=== PATIENT | female | born 1965 | race Caucasian/White ===

== ENCOUNTER 2019-01-18 09:28 | Emergency (ER) | payer OTHER ==
--- NOTE | 2019-01-18 10:30 | EDM.PDOC ---
ED HPI GENERAL MEDICAL PROBLEM - General Chief Complaint: Upper Extremity Injury/Pain Stated Complaint: INJURED LEFT WRIST Time Seen by Provider: 01/18/19 10:29 Source of Information: Reports: Patient History Limitations: Reports: No Limitations - History of Present Illness INITIAL COMMENTS - FREE TEXT/NARRATIVE: HISTORY AND PHYSICAL: History of present illness: Patient's a 53-year-old female here with complaint of right wrist injury. She states that last night she was lifting a large drill bit up onto a plane when she felt immediate pain in her wrist. She reports pain with certain movements and cannot lay it flat on the table. She is taking motrin with some relief. Review of systems: As per history of present illness and below otherwise all systems reviewed and negative. Past medical history: As per history of present illness and as reviewed below otherwise noncontributory. Surgical history: As per history of present illness and as reviewed below otherwise noncontributory. Social history: No reported history of drug or alcohol abuse. Family history: As per history of present illness and as reviewed below otherwise noncontributory. Physical exam: General: Patient sitting comfortably in no acute distress and nontoxic appearing HEENT: Atraumatic, normocephalic, pupils reactive, negative for conjunctival pallor or scleral icterus, mucous membranes moist, throat clear, neck supple, nontender, trachea midline. No meningeal signs. Lungs: Clear to auscultation, breath sounds equal bilaterally, chest nontender. Heart: S1S2, regular, negative for clicks, rubs, or overt murmur. Abdomen: Soft, nondistended, nontender. Negative for masses or hepatosplenomegaly. Negative for costovertebral tenderness. No rigidity, rebound , guarding. Pelvis: Stable nontender. Genitourinary: Deferred. Rectal: Deferred. Extremities: There is no obvious swelling or deformity of the right wrist. Pain to palpation along the distal radius. No anatomical snuff box tenderness. Atraumatic, negative for cords or calf pain. Neurovascular unremarkable. Neuro: Awake, alert, oriented. Cranial nerves II through XII unremarkable. Cerebellum unremarkable. Motor and sensory unremarkable throughout. Exam nonfocal. Notes: Diagnostics: x-ray right wrist Therapeutics: Wrist splint Prescriptions: None Impression: Right wrist sprain Plan: 1. Wear splint, ice, and motrin as instructed 2. Follow up with primary care provider or orthopedics 3. Return to ED as needed as discussed Definitive disposition and diagnosis as appropriate pending reevaluation and review of above. Right Wrist Pain Score (Numeric/FACES): 6 - Related Data Allergies Allergy/AdvReac Type Severity Reaction Status Date / Time Sulfa (Sulfonamide Allergy Hives Verified 01/18/19 10:18 Antibiotics) Home Meds: Home Meds . [No Known Home Meds] 01/18/19 [History] Past Medical History - Past Health History Medical/Surgical History: Denies Medical/Surgical History - Infectious Disease History Infectious Disease History: Reports: None Social & Family History - Family History Family Medical History: Noncontributory - Tobacco Use Smoking Status *Q: Current Every Day Smoker Years of Tobacco use: 35 Packs/Tins Daily: 1 - Caffeine Use Caffeine Use: Reports: Coffee - Recreational Drug Use Recreational Drug Use: No Review of Systems - Review of Systems Review Of Systems: ROS reveals no pertinent complaints other than HPI. ED EXAM, GENERAL - Physical Exam Exam: See Below (see dictation) Course - Vital Signs Last Recorded V/S: Last Vital Signs Temp 97.4 F 01/18/19 10:18 Pulse 62 01/18/19 10:18 Resp 15 01/18/19 10:18 BP 104/65 01/18/19 10:18 Pulse Ox 97 01/18/19 10:18 Departure - Departure Time of Disposition: 11:06 Disposition: Home, Self-Care 01 Condition: Good Clinical Impression: Right wrist injury - Discharge Information Referrals: PCP,Not In Area [Primary Care Provider] - Forms: ED Department Discharge Additional Instructions: The following information is given to patients seen in the emergency department who are being discharged to home. This information is to outline your options for follow-up care. We provide all patients seen in our emergency department with a follow-up referral. The need for follow-up, as well as the timing and circumstances, are variable depending upon the specifics of your emergency department visit. If you don't have a primary care physician on staff, we will provide you with a referral. We always advise you to contact your personal physician following an emergency department visit to inform them of the circumstance of the visit and for follow-up with them and/or the need for any referrals to a consulting specialist. The emergency department will also refer you to a specialist when appropriate. This referral assures that you have the opportunity for follow-up care with a specialist. All of these measure are taken in an effort to provide you with optimal care, which includes your follow-up. Under all circumstances we always encourage you to contact your private physician who remains a resource for coordinating your care. When calling for follow-up care, please make the office aware that this follow-up is from your recent emergency room visit. If for any reason you are refused follow-up, please contact the [facility] Emergency Department at and asked to speak to the emergency department charge nurse. [facility] [address] [place] [id number] [address] [facility] [address] [place] [address], [address] [place] [address] 1. Wear splint, ice, and motrin as instructed 2. Follow up with primary care provider or orthopedics 3. Return to ED as needed as discussed
--- NOTE | 2019-01-18 10:58 | CR ---
Indication: Drill fell on right wrist Technique: Three views of the right wrist routine. Comparison: None Findings: Degenerative changes of the right wrist are identified. No acute fracture or subluxation is identified. Impression: No acute fracture. Dictated by Yessenia Armando MD @ Jan 18 2019 10:57AM Signed by Dr. Yessenia Armando @ Jan 18 2019 10:57AM
== END 2019-01-18 11:38 | disposition home or self-care (01) ==
LOC: MW.ED 09:28
DX: S63.501A Unspecified sprain of right wrist, initial encounter (principal); F17.210 Nicotine dependence, cigarettes, uncomplicated; Z88.2 Allergy status to sulfonamides; X50.0XXA Overexertion from strenuous movement or load, initial encounter
CPT/HCPCS: 73110-26-RT; 73110-RT; 99283-25

== ENCOUNTER 2020-04-15 12:08 | Emergency (ER) | payer OTHER, BC ==
--- NOTE | 2020-04-15 12:26 | EDM.PDOC ---
ED HPI GENERAL MEDICAL PROBLEM - General Chief Complaint: Head Injury Stated Complaint: FELL Time Seen by Provider: 04/15/20 12:25 Source of Information: Reports: Patient History Limitations: Reports: No Limitations - History of Present Illness INITIAL COMMENTS - FREE TEXT/NARRATIVE: HISTORY AND PHYSICAL: History of present illness: Patient is a 55-year-old female presents to the ED for head injury. Patient works for [employer] and states that she missed a step and fell approximately 2 feet off of a loading dock hitting her head and scraping her right leg. She does believe that she lost consciousness. She states that she is having some neck pain now and feeling dizzy. She denies any nausea, vomiting, visual changes, chest pain, shortness of breath. She denies significant past medical history and is not on any anticoagulants. Review of systems: As per history of present illness and below otherwise all systems reviewed and negative. Past medical history: As per history of present illness and as reviewed below otherwise noncontributory. Surgical history: As per history of present illness and as reviewed below otherwise noncontributory. Social history: No reported history of drug or alcohol abuse. Family history: As per history of present illness and as reviewed below otherwise noncontributory. Physical exam: General: Patient sitting comfortably in no acute distress and nontoxic appearing HEENT: abrasion to the left brow. normocephalic, pupils reactive, negative for conjunctival pallor or scleral icterus, mucous membranes moist, throat clear, neck supple, nontender, trachea midline. No meningeal signs. Lungs: Clear to auscultation, breath sounds equal bilaterally, chest nontender. Heart: S1S2, regular, negative for clicks, rubs, or overt murmur. Abdomen: Soft, nondistended, nontender. Negative for masses or hepatosplenomegaly. Negative for costovertebral tenderness. No rigidity, rebound , guarding. Pelvis: Stable nontender. Genitourinary: Deferred. Rectal: Deferred. Extremities: Abrasion to the right anterior tian. negative for cords or calf pain. Neurovascular unremarkable. Neuro: Awake, alert, oriented. Cranial nerves II through XII unremarkable. Cerebellum unremarkable. Motor and sensory unremarkable throughout. Exam nonfocal. Notes: Diagnostics: CT head w/o, CT neck w/o Therapeutics: none Prescriptions: none Impression: Head injury, fall, neck strain Plan: Alternate tylenol and motrin as needed Follow up with primary care provider Return to ED as needed as discussed Definitive disposition and diagnosis as appropriate pending reevaluation and review of above. Neck Pain Score (Numeric/FACES): 3 - Related Data Allergies Allergy/AdvReac Type Severity Reaction Status Date / Time Sulfa (Sulfonamide Allergy Hives Verified 04/15/20 12:24 Antibiotics) Home Meds: Home Meds . [No Known Home Meds] 01/18/19 [History] Past Medical History - Past Health History Medical/Surgical History: Denies Medical/Surgical History - Infectious Disease History Infectious Disease History: Reports: None Social & Family History - Family History Family Medical History: Noncontributory - Caffeine Use Caffeine Use: Reports: Coffee ED ROS GENERAL - Review of Systems Review Of Systems: Comprehensive ROS is negative, except as noted in HPI. ED EXAM, HEAD INJURY - Physical Exam Exam: See Below (see dictation) Course - Vital Signs Last Recorded V/S: Last Vital Signs Temp 97.3 F 04/15/20 12:21 Pulse 65 04/15/20 12:21 Resp 16 04/15/20 12:21 BP 135/77 04/15/20 12:21 Pulse Ox 97 04/15/20 12:21 Departure - Departure Time of Disposition: 13:27 Disposition: Home, Self-Care 01 Condition: Good Clinical Impression: Head injury, Fall, Cervical strain - Discharge Information Referrals: PCP,None [Primary Care Provider] - Forms: ED Department Discharge Additional Instructions: The following information is given to patients seen in the emergency department who are being discharged to home. This information is to outline your options for follow-up care. We provide all patients seen in our emergency department with a follow-up referral. The need for follow-up, as well as the timing and circumstances, are variable depending upon the specifics of your emergency department visit. If you don't have a primary care physician on staff, we will provide you with a referral. We always advise you to contact your personal physician following an emergency department visit to inform them of the circumstance of the visit and for follow-up with them and/or the need for any referrals to a consulting specialist. The emergency department will also refer you to a specialist when appropriate. This referral assures that you have the opportunity for follow-up care with a specialist. All of these measure are taken in an effort to provide you with optimal care, which includes your follow-up. Under all circumstances we always encourage you to contact your private physician who remains a resource for coordinating your care. When calling for follow-up care, please make the office aware that this follow-up is from your recent emergency room visit. If for any reason you are refused follow-up, please contact the [facility] Emergency Department at and asked to speak to the emergency department charge nurse. [facility] [address] [place] [id number] [address] Alternate tylenol and motrin as needed Follow up with primary care provider Return to ED as needed as discussed Sepsis Event Note - Evaluation Sepsis Screening Result: No Definite Risk - Focused Exam Vital Signs: Vital Signs Temp Pulse Resp BP Pulse Ox 04/15/20 12:21 97.3 F 65 16 135/77 97 Date Exam was Performed: 04/15/20 Time Exam was Performed: 13:23
--- NOTE | 2020-04-15 13:11 | CT ---
Head CT Technique: Multiple axial sections through the brain were obtained. Intravenous contrast was not utilized. Beam hardening artifact obscures some details within the posterior fossa. Ventricles along with basal cisterns and sulci over the convexities are within normal limits for the patient's age. No abnormal parenchymal densities are seen. No evidence of intracranial hemorrhage. No midline shift or mass effect is seen. Bone window settings were reviewed which shows slight mucosal thickening within the right maxillary sinus as well as mucosal thickening scattered within the ethmoid and left frontal sinuses and within the sphenoid sinus. These findings are most likely chronic. Mastoid sinuses show nothing acute. No acute calvarial abnormality is appreciated. Impression: 1. Findings as noted above. 2. Nothing acute is appreciated. Diagnostic code #2 This report was dictated in MDT
--- NOTE | 2020-04-15 13:15 | CT ---
CT cervical spine Technique: Multiple axial sections were obtained from above C1 inferiorly to the bottom of T3. Reconstructed sagittal and coronal images were reviewed. Findings: Severe disc space narrowing noted at C5-C6 with mild anterior and posterior osteophytes. Other disc spaces are fairly well preserved. Vertebral body heights are maintained. Mild degenerative change is noted between the dens and anterior arch of C1. Degenerative change is scattered throughout the apophyseal joints. Vertebral bodies and posterior arches are intact. No fracture is appreciated. Partially visualized parenchymal density is noted within the left upper chest. No bony central or bony neural foraminal stenosis is seen. Impression: 1. Degenerative change as noted above. 2. Partially visualized opacity within the left upper chest, difficult to exclude area of pneumonia, pulmonary contusion or mass. Consider noncontrast chest CT to further evaluate. 3. No acute fracture or abnormal subluxation is seen within the cervical spine. Diagnostic code #9 This report was dictated in MDT
== END 2020-04-15 13:49 | disposition home or self-care (01) ==
LOC: MW.ED 12:08
DX: S09.90XA Unspecified injury of head, initial encounter (principal); S16.1XXA Strain of muscle, fascia and tendon at neck level, initial encounter; S80.811A Abrasion, right lower leg, initial encounter; S00.212A Abrasion of left eyelid and periocular area, initial encounter; Z88.2 Allergy status to sulfonamides; W10.8XXA Fall (on) (from) other stairs and steps, initial encounter
CPT/HCPCS: 70450; 70450-26; 72125; 72125-26; 99283; 99283-25

== ENCOUNTER 2021-04-21 16:41 | Inpatient (IN) | payer BC, OTHER ==
[2021-04-21 18:33] LABS: CORONAVIRUS COVID-19 NAA NEGATIVE (NEGATIVE)
[2021-04-21 19:06] LABS: CARBON DIOXIDE,CO2 25.8 mmol/L (21.0-32.0)
[2021-04-21 19:10] LABS: POTASSIUM,K 3.4 mmol/L (3.5-5.1)
[2021-04-21 19:43] LABS: INFLUENZA A NAA NEGATIVE (NEGATIVE); INFLUENZA B NAA NEGATIVE (NEGATIVE)
--- NOTE | 2021-04-21 19:51 | CT ---
For Patients: As a result of the Century Cures Act, medical imaging exams and procedure reports are released immediately into your electronic medical record. You may view this report before your referring provider. If you have questions, please contact your health care provider. INDICATION: Headache, neck pain TECHNIQUE: CT head without contrast. COMPARISON: April 15, 2020 FINDINGS: CSF spaces: Within normal limits for age. There is cavum septum pellucidum et vergae, a normal variant. Brain parenchyma: The lorenzana-white differentiation is normal. No sign of mass, hemorrhage, or midline shift. Skull base and calvarium: The visualized paranasal sinuses and mastoid air cells demonstrate no acute or significant findings. The visualized orbits are grossly unremarkable. No skull fractures. IMPRESSION: No acute abnormality. Please note that all CT scans at this facility use dose modulation, iterative reconstruction, and/or weight-based dosing when appropriate to reduce radiation dose to as low as reasonably achievable. Dictated by Rebekah Franklin MD @ 04/21/2021 7:49:[address] Rebekah Franklin @ Apr 21 2021 7:49PM
--- NOTE | 2021-04-21 20:03 | CT ---
For Patients: As a result of the Century Cures Act, medical imaging exams and procedure reports are released immediately into your electronic medical record. You may view this report before your referring provider. If you have questions, please contact your health care provider. INDICATION: headache/ neck pain TECHNIQUE: CT cervical spine without contrast. COMPARISON: 04/15/2020 FINDINGS: Vertebral alignment: Alignment is normal. Vertebrae: There are no fractures or suspicious bony lesions. Discs and facet joints: There are moderate multilevel degenerative disc and facet changes. Extraspinal findings: There is a 1.3 cm hypodense lesion in the right thyroid lobe. IMPRESSION: 1. No sign of acute injury. 2. Multilevel degenerative spondylosis. 3. Hypodense lesion in the right thyroid lobe. Recommend thyroid ultrasound for further characterization. Please note that all CT scans at this facility use dose modulation, iterative reconstruction, and/or weight-based dosing when appropriate to reduce radiation dose to as low as reasonably achievable. Dictated by Rebekah Franklin MD @ 04/21/2021 8:01:[address] Rebekah Franklin @ Apr 21 2021 8:01PM
--- NOTE | 2021-04-21 20:03 | CR ---
For Patients: As a result of the Cures Act, medical imaging exams and procedure reports are released immediately into your electronic medical record. You may view this report before your referring provider. If you have questions, please contact your health care provider. INDICATION: Fever, headache, neck pain TECHNIQUE: PA and lateral views of the chest COMPARISON: None FINDINGS: The lung apices are incompletely included on PA view. There is no sizable pneumothorax. The visualized lungs are clear. There is no pleural effusion. The cardiomediastinal silhouette is normal. The osseous structures are unremarkable. IMPRESSION: No acute abnormality. Dictated by Eboni Craig MD @ 04/21/2021 8:02:[address] Eboni Craig @ Apr 21 2021 8:02PM
--- NOTE | 2021-04-21 20:46 | PCM.SN.2 ---
- Free Text/Narrative Note: LUMBAR PUNCTURE NOTE Request by Dr Desouza (hospitalist) to do lumbar puncture for R/O meningitis PAR risks including spinal YOU discussed, no questions consent signed LLD sterile prep draped local L3-4 21G spinal needle inserted with bevel parallel to ligament flavum pos csf, no blood or paresthesias OP 23 cm water 4 vials csf collected sterally, abt 1 cc per vial fluid appeared clear CP 13 spinal needle removed, dressing applied no known complications, pt tolerated procedure well follow up Dr Desouza
--- NOTE | 2021-04-21 20:49 | PCM.HP.2 ---
H&P History of Present Illness - General Date of Service: 04/21/21 Admit Problem/Dx: Admission Diagnosis/Problem Admission Diagnosis/Problem Fever - History of Present Illness Initial Comments - Free Text/Narative: 56 yo female who was directly admitted from Dr. [facility]an [facility] with complaint of fevers, myalgias for past week. Patient reports started with a headache and then a day later she developed fevers and chills. She does report sore neck and back as well as aches everywhere. Patient denies any shortness of breath, cough, or diarrhea. Dr. Munoz was conserned about possible aseptic meningitis so requested admission. Headache Pain Score (Numeric/FACES): 5 - Related Data Allergies/Adverse Reactions: Allergies Allergy/AdvReac Type Severity Reaction Status Date / Time Sulfa (Sulfonamide Allergy Hives Verified 04/21/21 19:07 Antibiotics) Home Medications: Home Meds . [No Known Home Meds] 01/18/19 [History] Past Medical History - Past Health History Medical/Surgical History: Denies Medical/Surgical History - Infectious Disease History Infectious Disease History: Reports: None Social & Family History - Family History Family Medical History: No Pertinent Family History - Tobacco Use Tobacco Use Status *Q: Current Every Day Tobacco User Years of Tobacco use: 30 Packs/Tins Daily: 1 Used Tobacco, but Quit: No Second Hand Smoke Exposure: Yes - Caffeine Use Caffeine Use: Reports: Coffee, Tea - Alcohol Use Number of Drinks Per Day: 3 Date of Last Drink: 04/15/21 - Recreational Drug Use Recreational Drug Use: No H&P Review of Systems - Review of Systems: Review Of Systems: Comprehensive ROS is negative, except as noted in HPI. Exam - Exam Exam: See Below - Vital Signs Vital Signs: Last Vital Signs Temp 35.7 C L 04/21/21 18:21 Pulse 73 04/21/21 18:21 Resp 18 04/21/21 18:21 BP 117/77 04/21/21 18:21 Pulse Ox 99 04/21/21 18:21 Weight: 67.2 kg - Exam General: Alert, Oriented HEENT: Conjunctiva Clear, EOMI, Mucosa Moist & [place] Neck: Supple, Full Range of Motion Lungs: Clear to Auscultation, Normal Respiratory Effort Cardiovascular: Regular Rate, Regular Rhythm GI/Abdominal Exam: Normal Bowel Sounds, Soft, Non-Tender Extremities: Normal Inspection, Non-Tender, No Pedal Edema Skin: Warm, Dry, Intact Neurological: Cranial Nerves Intact, Strength Equal Bilateral, Normal Gait, Normal Speech, Sensation Intact. No: Focal Deficit - Patient Data Lab Results Last 24 hrs: Laboratory Results - last 24 hr 04/21/21 04/21/21 04/21/21 Range/Units 16:55 18:24 18:24 WBC 6.39 (4.0-11.0) K/uL RBC 4.59 (4.30-5.90) M/uL Hgb 15.5 (12.0-16.0) g/dL Hct 41.8 (36.0-46.0) % MCV 91.1 (80.0-98.0) fL MCH 33.8 H (27.0-32.0) pg MCHC 37.1 H (31.0-37.0) g/dL RDW Std Deviation 41.2 (28.0-62.0) fl RDW Coeff of Delia 12 (11.0-15.0) % Plt Count 214 (150-400) K/uL MPV 8.80 (7.40-12.00) fL Neut % (Auto) 54.7 (48.0-80.0) % Lymph % (Auto) 30.7 (16.0-40.0) % [place] % (Auto) 11.3 (0.0-15.0) % Eos % (Auto) 2.5 (0.0-7.0) % Baso % (Auto) 0.8 (0.0-1.5) % Neut # (Auto) 3.5 (1.4-5.7) K/uL Lymph # (Auto) 2.0 (0.6-2.4) K/uL [place] # (Auto) 0.7 (0.0-0.8) K/uL Eos # (Auto) 0.2 (0.0-0.7) K/uL Baso # (Auto) 0.1 (0.0-0.1) K/uL Nucleated RBC % 0.0 /100WBC Nucleated RBCs # 0 K/uL INR 0.98 Sodium (136-145) mmol/L Potassium (3.5-5.1) mmol/L Chloride (98-107) mmol/L Carbon Dioxide (21.0-32.0) mmol/L BUN (7.0-18.0) mg/dL Creatinine (0.6-1.0) mg/dL Est Cr Clr Drug Dosing mL/min Estimated GFR (MDRD) ml/min Glucose (74-106) mg/dL Calcium (8.5-10.1) mg/dL Total Bilirubin (0.2-1.0) mg/dL AST (15-37) IU/L ALT (14-63) IU/L Alkaline Phosphatase (46-116) U/L Total Protein (6.4-8.2) g/dL Albumin (3.4-5.0) g/dL Globulin (2.6-4.0) g/dL Albumin/Globulin Ratio (0.9-1.6) Urine Color Urine Appearance Urine pH (5.0-8.0) Ur Specific [place] (1.001-1.035) Urine Protein (NEGATIVE) mg/dL Urine Glucose (UA) (NEGATIVE) mg/dL Urine Ketones (NEGATIVE) mg/dL Urine Occult Blood (NEGATIVE) Urine Nitrite (NEGATIVE) Urine Bilirubin (NEGATIVE) Urine Urobilinogen (<2.0) EU/dL Ur Leukocyte Esterase (NEGATIVE) Urine RBC (0-2/HPF) Urine WBC (0-5/HPF) Ur Epithelial Cells (NONE-FEW) Urine Bacteria (NEGATIVE) Influenza Type A RNA NEGATIVE (NEGATIVE) Influenza Type B RNA NEGATIVE (NEGATIVE) SARS-CoV-2 RNA (AJITH) NEGATIVE (NEGATIVE) 04/21/21 04/21/21 Range/Units 18:24 18:37 WBC (4.0-11.0) K/uL RBC (4.30-5.90) M/uL Hgb (12.0-16.0) g/dL Hct (36.0-46.0) % MCV (80.0-98.0) fL MCH (27.0-32.0) pg MCHC (31.0-37.0) g/dL RDW Std Deviation (28.0-62.0) fl RDW Coeff of Delia (11.0-15.0) % Plt Count (150-400) K/uL MPV (7.40-12.00) fL Neut % (Auto) (48.0-80.0) % Lymph % (Auto) (16.0-40.0) % [place] % (Auto) (0.0-15.0) % Eos % (Auto) (0.0-7.0) % Baso % (Auto) (0.0-1.5) % Neut # (Auto) (1.4-5.7) K/uL Lymph # (Auto) (0.6-2.4) K/uL [place] # (Auto) (0.0-0.8) K/uL Eos # (Auto) (0.0-0.7) K/uL Baso # (Auto) (0.0-0.1) K/uL Nucleated RBC % /100WBC Nucleated RBCs # K/uL INR Sodium 131 L (136-145) mmol/L Potassium 3.4 L (3.5-5.1) mmol/L Chloride 95 L (98-107) mmol/L Carbon Dioxide 25.8 (21.0-32.0) mmol/L BUN 11 (7.0-18.0) mg/dL Creatinine 1.0 (0.6-1.0) mg/dL Est Cr Clr Drug Dosing 55.85 mL/min Estimated GFR (MDRD) 57.1 ml/min Glucose 97 (74-106) mg/dL Calcium 8.5 (8.5-10.1) mg/dL Total Bilirubin 0.5 (0.2-1.0) mg/dL AST 14 L (15-37) IU/L ALT 21 (14-63) IU/L Alkaline Phosphatase 64 (46-116) U/L Total Protein 6.5 (6.4-8.2) g/dL Albumin 3.2 L (3.4-5.0) g/dL Globulin 3.3 (2.6-4.0) g/dL Albumin/Globulin Ratio 1.0 (0.9-1.6) Urine Color YELLOW Urine Appearance CLEAR Urine pH 6.0 (5.0-8.0) Ur Specific [place] <= 1.005 (1.001-1.035) Urine Protein NEGATIVE (NEGATIVE) mg/dL Urine Glucose (UA) NEGATIVE (NEGATIVE) mg/dL Urine Ketones NEGATIVE (NEGATIVE) mg/dL Urine Occult Blood NEGATIVE (NEGATIVE) Urine Nitrite NEGATIVE (NEGATIVE) Urine Bilirubin NEGATIVE (NEGATIVE) Urine Urobilinogen 0.2 (<2.0) EU/dL Ur Leukocyte Esterase TRACE H (NEGATIVE) Urine RBC 0-1 (0-2/HPF) Urine WBC 0-2 (0-5/HPF) Ur Epithelial Cells RARE (NONE-FEW) Urine Bacteria 1+ H (NEGATIVE) Influenza Type A RNA (NEGATIVE) Influenza Type B RNA (NEGATIVE) SARS-CoV-2 RNA (AJITH) (NEGATIVE) Result Diagrams: 04/21/21 18:24 04/21/21 18:24 Sepsis Event Note - Evaluation Sepsis Screening Result: No Definite Risk - Focused Exam Vital Signs: Vital Signs Temp Pulse Resp BP Pulse Ox 04/21/21 18:21 35.7 C L 73 18 117/77 99 Problem List Initiated/Reviewed/Updated: Yes Orders Last 24hrs: Active Orders 24 hr Category Date Time Status Patient Status [ADT] Routine ADT 04/21/21 18:40 Active Antiembolic Devices [RC] PER UNIT ROUTINE Care 04/21/21 18:42 Active Influenza Vaccine Charge [RC] .DISCHARGE Care 04/21/21 18:17 Active Oxygen Therapy [RC] PRN Care 04/21/21 18:40 Active Up ad Yvonne [RC] ASDIRECTED Care 04/21/21 18:40 Active VTE/DVT Education [RC] PER UNIT ROUTINE Care 04/21/21 18:40 Active Vital Signs [RC] Q4H Care 04/21/21 18:40 Active CELL COUNT,CSF [BF] Routine Lab 04/21/21 18:56 Ordered CSF LACTIC Routine Lab 04/21/21 18:56 Ordered CSF PROTEIN Routine Lab 04/21/21 18:56 Ordered CULTURE BLOOD [BC] Stat Lab 04/21/21 19:39 Received CULTURE BLOOD [BC] Stat Lab 04/21/21 19:45 Received CULTURE CSF + SMEAR [RM] Routine Lab 04/21/21 18:56 Ordered CULTURE URINE [MREF] Routine Lab 04/21/21 18:37 Received GLUCOSE,CSF [BF] Routine Lab 04/21/21 18:56 Ordered [place] VIRUS ANTIBODY, CSF Routine Lab 04/21/21 18:56 Ordered FLU Vacc [id number] 36MOS UP/PF [Afluria Quad 2020-21 ( Med 04/22/21 09:00 Once 3YR UP)] 60 mcg IM .ONCE ONE Blood Culture x2 Reflex Set [OM.PC] Stat Oth 04/21/21 18:59 Ordered Isolation [COMM] Routine Oth 04/21/21 18:37 Active Sequential Compression Device [OM.PC] Per Unit Routine Oth 04/21/21 18:41 Ordered Resuscitation Status Routine Resus Stat 04/21/21 18:40 Ordered Medication Orders Influenza Virus Vaccine (Flu Vacc [id number] 36mos Up/Pf 60 Mcg/0.5 Ml Syringe) 60 mcg IM .ONCE ONE Stop: 04/22/21 09:01 Assessment/Plan Comment:: 56 yo female admitted for subjective fevers, chills, with concern of aseptic meningitis. We will get routine labs, CXR, UA and LP. My concern for bacterial meningitis is low so will hold on antibiotic therapy for now.
[2021-04-21] MEDS ORDERED: Sodium Chloride 0.9% with KCl 1,000 ML IV SCH (21:00)
--- NOTE | 2021-04-21 22:53 | PCM.SN.2 ---
- Free Text/Narrative Note: CSF analysis shows likely viral meningitis, Have sent for [place] and HSV, no history of vaginal or oral lesions. Spoke with charge nurse regarding the IV fluid and antibiotic orders. Will give antibiotics for now while awaiting culture results.
[2021-04-21] MEDS ORDERED: Acetaminophen 325 MG Tab PO PRN (23:15)
[2021-04-21] MEDS ORDERED: Acetaminophen 325 MG Tab ONE (23:20)
[2021-04-21] MEDS: Dexamethasone 10 MG/ML SDV IVPUSH SCH (23:36)
[2021-04-21] MEDS: cefTRIAXone 2 GM/50 ML BAG IV SCH (23:37)
[2021-04-22] MEDS: Ampicillin 2 GM in Sodium Chloride 0.9% 100 ML IV SCH ×5 (00:10→16:11)
[2021-04-22] MEDS: Dexamethasone 10 MG/ML SDV IVPUSH SCH (05:30)
[2021-04-22 06:37] LABS: BLOOD UREA NITROGEN,BUN 10 mg/dL (7.0-18.0); CARBON DIOXIDE,CO2 25.4 mmol/L (21.0-32.0); GLUCOSE RANDOM 147 mg/dL (74-106)
--- NOTE | 2021-04-22 08:22 | PCM48HPAN ---
Post Anesthesia Note - EVALUATION WITHIN 48HRS OF ANESTHETIC Vital Signs in Normal Range: Yes Patient Participated in Evaluation: Yes Respiratory Function Stable: Yes Airway Patent: Yes Cardiovascular Function Stable: Yes Hydration Status Stable: Yes Pain Control Satisfactory: Yes Nausea and Vomiting Control Satisfactory: Yes Mental Status Recovered: Yes Vital Signs: Last Vital Signs Temp 35.8 C L 04/22/21 07:52 Pulse 68 04/22/21 07:52 Resp 16 04/22/21 07:52 BP 120/73 04/22/21 07:52 Pulse Ox 100 04/22/21 07:52 - COMMENTS/OBSERVATIONS Free Text/Narrative:: No problems post spinal tap.
[2021-04-22] MEDS ORDERED: FLU Vacc QS2020-21 36MOS UP/PF 60 MCG/0.5 ML Syringe IM ONE (09:00)
[2021-04-22] MEDS: cefTRIAXone 2 GM/50 ML BAG IV SCH (09:37)
[2021-04-22] MEDS ORDERED: Sodium Chloride 0.9% 1,000 ML IV SCH (13:30)
[2021-04-22 14:19] LABS: SODIUM,NA 133 mmol/L (136-145)
[2021-04-22 14:20] LABS: CHLORIDE,CL 101 mmol/L (98-107); POTASSIUM,K 5.1 mmol/L (3.5-5.1)
[2021-04-22] MEDS ORDERED: valACYclovir 500 MG Tab PO SCH (15:30)
--- NOTE | 2021-04-22 15:38 | PCM.DCSUM1 ---
Discharge Summary - Hospital Course HPI Initial Comments: 56 yo female who was directly admitted from Dr[facility]an [facility] with complaint of fevers, myalgias for past week. Patient reports started with a headache and then a day later she developed fevers and chills. She does report sore neck and back as well as aches everywhere. Patient denies any shortness of breath, cough, or diarrhea. Dr. Munoz was conserned about possible aseptic meningitis so requested admission. Brief History: Patient was seen and examined noted to have headache, complaints of intermittent fevers, myalgia, sore neck and back. Underwent lumbar puncture and was started on antibiotics. Patient appears to be vitally stable today, states significant improvement, is able to tolerate a diet. CBC and CMP were within normal limits. CSF demonstrated some elevated white blood cells and protein. ID was consulted for possible viral meningitis. Recommended starting valacyclovir 1 g 3 times daily for 10 days. In the interim, varicella and HSV PCR fluid analysis results are pending as they are send outs to confirm official diagnosis. Patient is much improved, expresses desire to be discharged and understands she will need to adhere to appropriate regimen with plenty of hydration. Diagnosis: Stroke: No - Discharge Data Discharge Date: 04/22/21 Discharge Disposition: Home, Self-Care 01 Condition: Good - Referral to Home Health Primary Care Physician: PCP None - Patient Instructions Diet: Regular Diet as Tolerated Activity: As Tolerated Driving: May Drive Today Showering/Bathing: May Shower Notify Provider of: Fever, Increased Pain, Drainage, Nausea and/or Vomiting Other/Special Instructions: Please return to the hospital in the event you develop a significant headache, body aches, confusion worsening or return of your previous symptoms. Please complete prescription as described. It is advise patient hydrate plenty to ensure no injury to her kidneys as a side effect of this medication. - Discharge Plan *PRESCRIPTION DRUG MONITORING PROGRAM REVIEWED*: Not Applicable *COPY OF PRESCRIPTION DRUG MONITORING REPORT IN PATIENT JOSIE: Not Applicable Prescriptions/Med Rec: valACYclovir [Valtrex] 1,000 mg PO TID 10 Days #30 tab Home Medications: Home Meds valACYclovir [Valtrex] 1,000 mg PO TID 10 Days #30 tab 04/22/21 [Rx] Oxygen Therapy Mode: Room Air Patient Handouts: Viral Meningitis, Adult Referrals: Iraj Logan MD [Ordering Only Provider] - Brendon Munoz MD [Ordering Only Provider] - 04/26/21 12:30 pm - Discharge Summary/Plan Comment DC Time >30 min.: No Discharge Summary/Plan Comment: Patient was admitted for complaints of headache, fever, myalgia, sore neck and back. Underwent lumbar puncture with cerebrospinal fluid studies. There were no overnight events. Patient appears to be much improved this morning. Antibiotics will be discontinued and per infectious disease recommendations patient will be started on valacyclovir 1 g 3 times daily for 10 days. It has been emphasized that patient hydrate plenty while taking this medication to avoid any form of kidney injury. Patient stated understanding and is to closely follow-up with her PCP within the next day or 2 post discharge. In the interim CSF has been sent out for analysis to confirm suspected diagnosis of viral meningitis. Patient is to return to hospital in the event her symptoms return or worsen. She develop any significant headache, fever, chills, confusion, neck ache or body aches. Patient's PCP Dr. Chowdary was contacted regarding her discharge. - General Info Date of Service: 04/22/21 - Patient Data Vitals - Most Recent: Last Vital Signs Temp 96.8 F L 04/22/21 11:00 Pulse 74 04/22/21 11:00 Resp 16 04/22/21 11:00 BP 115/60 04/22/21 11:00 Pulse Ox 98 04/22/21 11:00 Weight - Most Recent: 148 lb 2.41 oz I&O - Last 24 hours: Intake & Output 04/22/21 04/22/21 04/22/21 06:59 14:59 22:59 Intake Total 650 Output Total 1000 Balance -350 Lab Results - Last 24 hrs: Laboratory Results - last 24 hr 04/21/21 04/21/21 04/21/21 Range/Units 16:55 18:24 18:24 WBC 6.39 (4.0-11.0) K/uL RBC 4.59 (4.30-5.90) M/uL Hgb 15.5 (12.0-16.0) g/dL Hct 41.8 (36.0-46.0) % MCV 91.1 (80.0-98.0) fL MCH 33.8 H (27.0-32.0) pg MCHC 37.1 H (31.0-37.0) g/dL RDW Std Deviation 41.2 (28.0-62.0) fl RDW Coeff of Delia 12 (11.0-15.0) % Plt Count 214 (150-400) K/uL MPV 8.80 (7.40-12.00) fL Neut % (Auto) 54.7 (48.0-80.0) % Lymph % (Auto) 30.7 (16.0-40.0) % [place] % (Auto) 11.3 (0.0-15.0) % Eos % (Auto) 2.5 (0.0-7.0) % Baso % (Auto) 0.8 (0.0-1.5) % Neut # (Auto) 3.5 (1.4-5.7) K/uL Lymph # (Auto) 2.0 (0.6-2.4) K/uL [place] # (Auto) 0.7 (0.0-0.8) K/uL Eos # (Auto) 0.2 (0.0-0.7) K/uL Baso # (Auto) 0.1 (0.0-0.1) K/uL Nucleated RBC % 0.0 /100WBC Nucleated RBCs # 0 K/uL INR 0.98 Sodium (136-145) mmol/L Potassium (3.5-5.1) mmol/L Chloride (98-107) mmol/L Carbon Dioxide (21.0-32.0) mmol/L BUN (7.0-18.0) mg/dL Creatinine (0.6-1.0) mg/dL Est Cr Clr Drug Dosing mL/min Estimated GFR (MDRD) ml/min Glucose (74-106) mg/dL Calcium (8.5-10.1) mg/dL Total Bilirubin (0.2-1.0) mg/dL AST (15-37) IU/L ALT (14-63) IU/L Alkaline Phosphatase (46-116) U/L Total Protein (6.4-8.2) g/dL Albumin (3.4-5.0) g/dL Globulin (2.6-4.0) g/dL Albumin/Globulin Ratio (0.9-1.6) Urine Color Urine Appearance Urine pH (5.0-8.0) Ur Specific [place] (1.001-1.035) Urine Protein (NEGATIVE) mg/dL Urine Glucose (UA) (NEGATIVE) mg/dL Urine Ketones (NEGATIVE) mg/dL Urine Occult Blood (NEGATIVE) Urine Nitrite (NEGATIVE) Urine Bilirubin (NEGATIVE) Urine Urobilinogen (<2.0) EU/dL Ur Leukocyte Esterase (NEGATIVE) Urine RBC (0-2/HPF) Urine WBC (0-5/HPF) Ur Epithelial Cells (NONE-FEW) Urine Bacteria (NEGATIVE) CSF Appearance CSF Color CSF WBC (0-5) /uL CSF RBC (0-0) /uL CSF Mononuclear Cells % CSF Polymorphonuclear % CSF Glucose (40-70) mg/dL CSF Total Protein (15-45) mg/dL Influenza Type A RNA NEGATIVE (NEGATIVE) Influenza Type B RNA NEGATIVE (NEGATIVE) SARS-CoV-2 RNA (AJITH) NEGATIVE (NEGATIVE) 04/21/21 04/21/21 04/21/21 Range/Units 18:24 18:37 20:29 WBC (4.0-11.0) K/uL RBC (4.30-5.90) M/uL Hgb (12.0-16.0) g/dL Hct (36.0-46.0) % MCV (80.0-98.0) fL MCH (27.0-32.0) pg MCHC (31.0-37.0) g/dL RDW Std Deviation (28.0-62.0) fl RDW Coeff of Delia (11.0-15.0) % Plt Count (150-400) K/uL MPV (7.40-12.00) fL Neut % (Auto) (48.0-80.0) % Lymph % (Auto) (16.0-40.0) % [place] % (Auto) (0.0-15.0) % Eos % (Auto) (0.0-7.0) % Baso % (Auto) (0.0-1.5) % Neut # (Auto) (1.4-5.7) K/uL Lymph # (Auto) (0.6-2.4) K/uL [place] # (Auto) (0.0-0.8) K/uL Eos # (Auto) (0.0-0.7) K/uL Baso # (Auto) (0.0-0.1) K/uL Nucleated RBC % /100WBC Nucleated RBCs # K/uL INR Sodium 131 L (136-145) mmol/L Potassium 3.4 L (3.5-5.1) mmol/L Chloride 95 L (98-107) mmol/L Carbon Dioxide 25.8 (21.0-32.0) mmol/L BUN 11 (7.0-18.0) mg/dL Creatinine 1.0 (0.6-1.0) mg/dL Est Cr Clr Drug Dosing 55.85 mL/min Estimated GFR (MDRD) 57.1 ml/min Glucose 97 (74-106) mg/dL Calcium 8.5 (8.5-10.1) mg/dL Total Bilirubin 0.5 (0.2-1.0) mg/dL AST 14 L (15-37) IU/L ALT 21 (14-63) IU/L Alkaline Phosphatase 64 (46-116) U/L Total Protein 6.5 (6.4-8.2) g/dL Albumin 3.2 L (3.4-5.0) g/dL Globulin 3.3 (2.6-4.0) g/dL Albumin/Globulin Ratio 1.0 (0.9-1.6) Urine Color YELLOW Urine Appearance CLEAR Urine pH 6.0 (5.0-8.0) Ur Specific [place] <= 1.005 (1.001-1.035) Urine Protein NEGATIVE (NEGATIVE) mg/dL Urine Glucose (UA) NEGATIVE (NEGATIVE) mg/dL Urine Ketones NEGATIVE (NEGATIVE) mg/dL Urine Occult Blood NEGATIVE (NEGATIVE) Urine Nitrite NEGATIVE (NEGATIVE) Urine Bilirubin NEGATIVE (NEGATIVE) Urine Urobilinogen 0.2 (<2.0) EU/dL Ur Leukocyte Esterase TRACE H (NEGATIVE) Urine RBC 0-1 (0-2/HPF) Urine WBC 0-2 (0-5/HPF) Ur Epithelial Cells RARE (NONE-FEW) Urine Bacteria 1+ H (NEGATIVE) CSF Appearance CLEAR CSF Color COLORLESS CSF WBC 273 H (0-5) /uL CSF RBC 2 H (0-0) /uL CSF Mononuclear Cells 97.0 % CSF Polymorphonuclear 3.0 % CSF Glucose (40-70) mg/dL CSF Total Protein (15-45) mg/dL Influenza Type A RNA (NEGATIVE) Influenza Type B RNA (NEGATIVE) SARS-CoV-2 RNA (AJITH) (NEGATIVE) 04/21/21 04/22/21 04/22/21 Range/Units 20:29 05:50 05:50 WBC 3.88 L (4.0-11.0) K/uL RBC 4.60 (4.30-5.90) M/uL Hgb 15.3 (12.0-16.0) g/dL Hct 42.2 (36.0-46.0) % MCV 91.7 (80.0-98.0) fL MCH 33.3 H (27.0-32.0) pg MCHC 36.3 (31.0-37.0) g/dL RDW Std Deviation 41.8 (28.0-62.0) fl RDW Coeff of Delia 12 (11.0-15.0) % Plt Count 222 (150-400) K/uL MPV 9.10 (7.40-12.00) fL Neut % (Auto) 82.7 H (48.0-80.0) % Lymph % (Auto) 14.4 L (16.0-40.0) % [place] % (Auto) 2.3 (0.0-15.0) % Eos % (Auto) 0.3 (0.0-7.0) % Baso % (Auto) 0.3 (0.0-1.5) % Neut # (Auto) 3.2 (1.4-5.7) K/uL Lymph # (Auto) 0.6 (0.6-2.4) K/uL [place] # (Auto) 0.1 (0.0-0.8) K/uL Eos # (Auto) 0.0 (0.0-0.7) K/uL Baso # (Auto) 0.0 (0.0-0.1) K/uL Nucleated RBC % 0.0 /100WBC Nucleated RBCs # 0 K/uL INR Sodium 133 L (136-145) mmol/L Potassium 5.1 (3.5-5.1) mmol/L Chloride 101 (98-107) mmol/L Carbon Dioxide 25.4 (21.0-32.0) mmol/L BUN 10 (7.0-18.0) mg/dL Creatinine 0.9 (0.6-1.0) mg/dL Est Cr Clr Drug Dosing 62.06 mL/min Estimated GFR (MDRD) > 60.0 ml/min Glucose 147 H (74-106) mg/dL Calcium 8.3 L (8.5-10.1) mg/dL Total Bilirubin (0.2-1.0) mg/dL AST (15-37) IU/L ALT (14-63) IU/L Alkaline Phosphatase (46-116) U/L Total Protein (6.4-8.2) g/dL Albumin (3.4-5.0) g/dL Globulin (2.6-4.0) g/dL Albumin/Globulin Ratio (0.9-1.6) Urine Color Urine Appearance Urine pH (5.0-8.0) Ur Specific [place] (1.001-1.035) Urine Protein (NEGATIVE) mg/dL Urine Glucose (UA) (NEGATIVE) mg/dL Urine Ketones (NEGATIVE) mg/dL Urine Occult Blood (NEGATIVE) Urine Nitrite (NEGATIVE) Urine Bilirubin (NEGATIVE) Urine Urobilinogen (<2.0) EU/dL Ur Leukocyte Esterase (NEGATIVE) Urine RBC (0-2/HPF) Urine WBC (0-5/HPF) Ur Epithelial Cells (NONE-FEW) Urine Bacteria (NEGATIVE) CSF Appearance CSF Color CSF WBC (0-5) /uL CSF RBC (0-0) /uL CSF Mononuclear Cells % CSF Polymorphonuclear % CSF Glucose 40.0 (40-70) mg/dL CSF Total Protein 113 H (15-45) mg/dL Influenza Type A RNA (NEGATIVE) Influenza Type B RNA (NEGATIVE) SARS-CoV-2 RNA (AJITH) (NEGATIVE) KALYANI Results - Last 24 hrs: Microbiology 04/21/21 20:29 Gram Stain - Final Cerebral Spinal Fluid CSF Culture - Preliminary NO GROWTH AFTER 1 DAY Med Orders - Current: Current Medications Acetaminophen (Acetaminophen 325 Mg Tab) 650 mg PO Q4H PRN PRN Reason: Pain Sodium Chloride (Normal Saline) 1,000 mls @ 125 mls/hr IV ASDIRECTED ARNOLD Last Admin: 04/22/21 15:00 Dose: 125 mls/hr Documented by: Valacyclovir HCl (Valacyclovir 500 Mg Tab) 1,000 mg PO TID ARNOLD Stop: 05/02/21 15:31 Discontinued Medications Acetaminophen (Acetaminophen 325 Mg Tab) Confirm Administered Dose 650 mg .ROUTE .STK-MED ONE Stop: 04/21/21 23:21 Last Admin: 04/21/21 23:37 Dose: 650 mg Documented by: Dexamethasone (Dexamethasone 10 Mg/Ml Sdv) 10 mg IVPUSH Q6H [facility] Last Admin: 04/22/21 05:30 Dose: 10 mg Documented by: Potassium Chloride/Sodium Chloride (Normal Saline With 40 Meq Kcl) 1,000 mls @ 150 mls/hr IV ASDIRECTED [facility] Stop: 04/22/21 03:39 Last Admin: 04/21/21 23:51 Dose: 150 mls/hr Documented by: Ceftriaxone Sodium/Dextrose (Rocephin In Dextrose,Iso-Osm 2 Gm/50 Ml) 2 gm in 50 mls @ 100 mls/hr IV Q12H [facility] Last Admin: 04/22/21 09:37 Dose: 100 mls/hr Documented by: Ampicillin Sodium 2 gm/ Sodium (Chloride) 100 mls @ 200 mls/hr IV Q4H [facility] Last Admin: 04/22/21 11:45 Dose: 200 mls/hr Documented by: Influenza Virus Vaccine (Pharmacy To Dose - Influenza Vaccine) 1 each IM ONETIME ONE Stop: 04/21/21 18:18 Influenza Virus Vaccine (Flu Vacc [id number] 36mos Up/Pf 60 Mcg/0.5 Ml Syringe) 60 mcg IM .ONCE ONE Stop: 04/22/21 09:01 Last Admin: 04/22/21 10:47 Dose: Not Given Documented by:
--- NOTE | 2021-04-23 14:07 | PCM.SN.2 ---
- Free Text/Narrative Note: Patient called reporting her headache returned today. She was disappointed that the pharmacy did not electronically received her prescription for Valtrex so she was not able to take her morning dose until 11:00 today. Offered to have her come back for evaluation but patient reports headache is manageable and wanted to see how tomorrow goes. I instructed her to come back to the hospital if her fevers returned, develops new symptoms or worsening headache.
== END 2021-04-22 17:30 | disposition home or self-care (01) | DRG 76 ==
LOC: MW.MS 16:41 → OBSVTOIN 22:52 → MW.MS 22:52
PROVIDERS: ADMIT Internal Medicine; ATTEND Internal Medicine
PROC: 009U3ZX Drainage of Spinal Canal, Percutaneous Approach, Diagnostic (ICD-10-PCS; principal; 2021-04-21)
DX: A87.9 Viral meningitis, unspecified (principal); F17.200 Nicotine dependence, unspecified, uncomplicated; Z20.822 Contact with and (suspected) exposure to COVID-19; Z88.2 Allergy status to sulfonamides
CPT/HCPCS: 0240U; 36415; 70450; 70450-26; 71046; 71046-26; 72125; 72125-26; 80048; 80053; 81001; 82945; 83605; 84157; 85025; 85610; 86788; 86789; 87040; 87070; 87086; 87205; 87529; 89050; A9270-GY; J0290; J0696; J1100; J3480; J7030

== ENCOUNTER 2021-04-23 18:14 | Emergency (ER) | payer OTHER ==
[2021-04-23] MEDS ORDERED: Ketorolac 30 MG/ML SDV IM ONE (19:31)
[2021-04-23] MEDS ORDERED: Sodium Chloride 0.9% 1,000 ML IV ONE (19:31)
[2021-04-23] MEDS ORDERED: Ketorolac 30 MG/ML SDV IVPUSH ONE (19:34)
[2021-04-23 20:23] LABS: BLOOD UREA NITROGEN,BUN 13 mg/dL (7.0-18.0); CARBON DIOXIDE,CO2 24.3 mmol/L (21.0-32.0); CHLORIDE,CL 98 mmol/L (98-107); GLUCOSE RANDOM 104 mg/dL (74-106); POTASSIUM,K 3.6 mmol/L (3.5-5.1); SODIUM,NA 132 mmol/L (136-145)
--- NOTE | 2021-04-23 21:25 | EDM.PDOC ---
ED HPI GENERAL MEDICAL PROBLEM - General Chief Complaint: Headache Stated Complaint: HEADACHE Time Seen by Provider: 04/23/21 18:22 Source of Information: Reports: Patient History Limitations: Reports: No Limitations - History of Present Illness INITIAL COMMENTS - FREE TEXT/NARRATIVE: HISTORY AND PHYSICAL: History of present illness: Patient is a 56-year-old female, with a current diagnosis of presumed viral/aseptic meningitis, who presents to the emergency room today with concern of headache. Patient was discharged from the hospital approximately 24 hours ago at our facility following an extensive work-up for meningitis including a lumbar puncture. It was determined during her hospital stay after talking and discussing with infectious disease divider that patient likely has viral meningitis meningitis and following viral panel that are send out. According to patient, she felt well yesterday but states that today she began developing a worsening headache again today. She states that the headache is similar to when she was admitted to the hospital initially before her presumed viral meningitis diagnosis. Patient states that she has not taken any [id number] pain medications including Tylenol or ibuprofen for her pain. Patient states that she continues to have some low-grade fevers and chills off and on which has been ongoing since she was diagnosed and been in the hospital. Patient also expresses some neck stiffness and back pain but states this is improved since her hospital stay but still has the symptoms. Patient denies any other symptoms or concerns. Denies any head injury. Patient denies chest pain, shortness of breath, or cough. Denies change in vision, syncope, or near syncope. Denies nausea, vomiting, abdominal pain, diarrhea, constipation, or dysuria. Has not noted any blood in urine or stool. Patient has been eating and drinking appropriately. Review of systems: As per history of present illness and below otherwise all systems reviewed and negative. Past medical history: As per history of present illness and as reviewed below otherwise noncontributory. Surgical history: As per history of present illness and as reviewed below otherwise noncontributory. Social history: See social history for further information Family history: As per history of present illness and as reviewed below otherwise noncontributory. Physical exam: General: Patient is alert, oriented, and in no acute distress. Patient laying on exam table holding her head with noted hyperacusis and photophobia. Patient noted temperature at 100.2, otherwise vitals stable and reviewed by me. Patient preferring the room to be dark. HEENT: Atraumatic, normocephalic, pupils equal and reactive bilaterally, negative for conjunctival pallor or scleral icterus, mucous membranes moist, TMs normal bilaterally, throat clear, neck mildly tender with range of motion, nontender, trachea midline. No drooling or trismus noted. No meningeal signs. No hot potato voice noted. Lungs: Clear to auscultation, breath sounds equal bilaterally, chest nontender. Heart: S1S2, regular rate and rhythm without overt murmur Abdomen: Soft, nondistended, nontender. Negative for masses or hepatosplenomegaly. Negative for costovertebral tenderness. Pelvis: Stable nontender. Genitourinary: Deferred. Rectal: Deferred. Skin: Intact, warm, dry. No lesions or rashes noted. Extremities: Negative Kernig and Brudzinski sign. Atraumatic, negative for cords or calf pain. Neurovascular unremarkable. Neuro: Awake, alert, oriented. Cranial nerves II through XII unremarkable. Cerebellum unremarkable. Motor and sensory unremarkable throughout. Exam nonfocal. Notes: Dr. Frost verbally involved in patient care including patient disposition. Patient is a 56-year-old male, with a presumed current diagnosis of viral meningitis, who presents emergency room today with concern of headache. On exam today, patient is noted to have a temperature at 100.2/afebrile, and vitals are stable. She does appear to be uncomfortable holding her head with hyperacusis and photophobia on exam, otherwise exam unremarkable. Will repeat labwork and initiate 1LNS bolus and Toradol and reassess patient. On chart review, patient was admitted to the hospitalist Dr. Desouza on 04/[address] Munoz's clinic for concern of meningitis as patient was exhibiting fevers, myalgias, headache, neck and back pain for 1 week at that time. Patient was admitted to the hospital and received a head CT scan, cervical spine CT scan and chest x-ray which all indicated no acute abnormalities. Labwork showed no elevation in WBC count and abx were initiated pending LP results. Patient also underwent a lumbar puncture with CSF fluid showing likely viral meningitis, pending West Nile/HSV/varicella testing which is a send out lab. Patient was discharged yesterday on 04/22 after consulting with infectious disease who said this is likely viral meningitis and started on valacyclovir. Patient states that when she was discharged, she had improvement of her headache and states that today it has slowly worsened again and is now like it was when she was admitted to the hospital. Patient has not taken any OTC medications since d/c from hospital yesterday. CSF culture shows no growth after 2 days. Repeat labwork today shows a normal WBC count of 7.81, otherwise mild derangements unremarkable. CMP shows corrected calcium 8.2, otherwise mild derangements unremarkable. At this time, I did consult the anesthesia on-call, Dr. Balderrama, and thoroughly discussed patient's case for consideration of possible blood patch. He has come in to personally see and evaluate the patient. See his official consult note for further treatment/disposition for blood patch. According to Dr. Balderrama, anesthesia, he does not feel that this is a spinal headache. Upon reevaluation of patient, she has great improvement of her symptoms today in the ED and no longer uncomfortable appearing and remains vitally stable. Given that patient's lab work has remained unchanged/unremarkable with WNL WBC count from her hospital stay, along with great improvement of symptoms with therapeutics, and no growth of the CSF fluid after 2 days, with head ct on 04/21 showing no acute findings and Dr. Balderrama feels not related to spinal headache, believe that patient symptoms likely related to presumed viral meningitis. Admission for observation was offered to patient but she declines at this time. All risks vs benefits discussed with patient and expresses understanding. Strict return precautions thoroughly discussed with patient. Discussed importance for follow-up with her primary care provider. Voices understanding and is agreeable to plan of care. Denies any further questions or concerns at this time. Diagnostics: CBC, CMP, Blood culture x 1 (Patient declines 2nd culture) Therapeutics: Saline, Toradol Prescription: None Impression: Viral meningitis, presumed Plan: 1. Continue taking the antiviral medication as prescribed to you as directed and as discussed. You can alternate ibuprofen and Tylenol as directed and as discussed. 2. Follow-up with a primary care provider as discussed. Return to the ED as needed and as discussed. Definitive disposition and diagnosis as appropriate pending reevaluation and review of above. Headache Pain Score (Numeric/FACES): 8 - Related Data Allergies Allergy/AdvReac Type Severity Reaction Status Date / Time Sulfa (Sulfonamide Allergy Hives Verified 04/23/21 18:33 Antibiotics) Home Meds: Home Meds valACYclovir [Valtrex] 1,000 mg PO TID 10 Days #30 tab 04/22/21 [Rx] Past Medical History - Past Health History Medical/Surgical History: Denies Medical/Surgical History - Infectious Disease History Infectious Disease History: Reports: None Social & Family History - Family History Family Medical History: No Pertinent Family History - Tobacco Use Tobacco Use Status *Q: Never Tobacco User - Caffeine Use Caffeine Use: Reports: None - Recreational Drug Use Recreational Drug Use: No ED ROS GENERAL - Review of Systems Review Of Systems: Comprehensive ROS is negative, except as noted in HPI. ED EXAM, GENERAL - Physical Exam Exam: See Below (See dictation) Course - Vital Signs Last Recorded V/S: Last Vital Signs Temp 100.2 F 04/23/21 18:34 Pulse 78 04/23/21 21:35 Resp 14 04/23/21 21:35 BP 145/80 H 04/23/21 21:35 Pulse Ox 97 04/23/21 21:35 - Orders/Labs/Meds Orders: Active Orders 24 hr Category Date Time Status CULTURE BLOOD [BC] Stat Lab 04/23/21 19:55 Received Blood Culture x2 Reflex Set [OM.PC] Stat Oth 04/23/21 19:47 Ordered Labs: Laboratory Tests 04/23/21 04/23/21 Range/Units 19:45 19:45 WBC 7.81 (4.0-11.0) K/uL RBC 3.98 L (4.30-5.90) M/uL Hgb 13.3 (12.0-16.0) g/dL Hct 36.6 (36.0-46.0) % MCV 92.0 (80.0-98.0) fL MCH 33.4 H (27.0-32.0) pg MCHC 36.3 (31.0-37.0) g/dL RDW Std Deviation 43.2 (28.0-62.0) fl RDW Coeff of Delia 13 (11.0-15.0) % Plt Count 226 (150-400) K/uL MPV 8.80 (7.40-12.00) fL Neut % (Auto) 66.0 (48.0-80.0) % Lymph % (Auto) 24.2 (16.0-40.0) % Norman % (Auto) 6.9 (0.0-15.0) % Eos % (Auto) 2.6 (0.0-7.0) % Baso % (Auto) 0.3 (0.0-1.5) % Neut # (Auto) 5.2 (1.4-5.7) K/uL Lymph # (Auto) 1.9 (0.6-2.4) K/uL Norman # (Auto) 0.5 (0.0-0.8) K/uL Eos # (Auto) 0.2 (0.0-0.7) K/uL Baso # (Auto) 0.0 (0.0-0.1) K/uL Nucleated RBC % 0.0 /100WBC Nucleated RBCs # 0 K/uL Sodium 132 L (136-145) mmol/L Potassium 3.6 (3.5-5.1) mmol/L Chloride 98 (98-107) mmol/L Carbon Dioxide 24.3 (21.0-32.0) mmol/L BUN 13 (7.0-18.0) mg/dL Creatinine 0.9 (0.6-1.0) mg/dL Est Cr Clr Drug Dosing 62.06 mL/min Estimated GFR (MDRD) > 60.0 ml/min Glucose 104 (74-106) mg/dL Calcium 7.8 L (8.5-10.1) mg/dL Total Bilirubin 0.4 (0.2-1.0) mg/dL AST 14 L (15-37) IU/L ALT 19 (14-63) IU/L Alkaline Phosphatase 54 (46-116) U/L Total Protein 5.8 L (6.4-8.2) g/dL Albumin 2.9 L (3.4-5.0) g/dL Globulin 2.9 (2.6-4.0) g/dL Albumin/Globulin Ratio 1.0 (0.9-1.6) Meds: Medications Discontinued Medications Generic Name Dose Route Start Last Admin Trade Name Freq PRN Reason Stop Dose Admin Sodium Chloride 1,000 mls @ 999 mls/hr 04/23/21 19:31 04/23/21 19:47 Normal Saline IV 04/23/21 20:31 999 mls/hr STAT ONE Administration Ketorolac Tromethamine 30 mg 04/23/21 19:31 04/23/21 19:33 Ketorolac 30 Mg/Ml Sdv IM 04/23/21 19:32 Not Given ONETIME ONE Ketorolac Tromethamine 30 mg 04/23/21 19:34 04/23/21 19:47 Ketorolac 30 Mg/Ml Sdv IVPUSH 04/23/21 19:35 30 mg ONETIME ONE Administration Departure - Departure Time of Disposition: 21:24 Disposition: Home, Self-Care 01 Clinical Impression: Viral meningitis - Discharge Information Instructions: Viral Meningitis, Adult Referrals: Brendon Munoz MD [Primary Care Provider] - Forms: ED Department Discharge Additional Instructions: The following information is given to patients seen in the emergency department who are being discharged to home. This information is to outline your options for follow-up care. We provide all patients seen in our emergency department with a follow-up referral. The need for follow-up, as well as the timing and circumstances, are variable depending upon the specifics of your emergency department visit. If you don't have a primary care physician on staff, we will provide you with a referral. We always advise you to contact your personal physician following an emergency department visit to inform them of the circumstance of the visit and for follow-up with them and/or the need for any referrals to a consulting specialist. The emergency department will also refer you to a specialist when appropriate. This referral assures that you have the opportunity for follow-up care with a specialist. All of these measure are taken in an effort to provide you with optimal care, which includes your follow-up. Under all circumstances we always encourage you to contact your private physician who remains a resource for coordinating your care. When calling for follow-up care, please make the office aware that this follow-up is from your recent emergency room visit. If for any reason you are refused follow-up, please contact the [facility] Emergency Department at and asked to speak to the emergency department charge nurse. [facility] [address] [place] [id number] [address] 1. Continue taking the antiviral medication as prescribed to you as directed and as discussed. You can alternate ibuprofen and Tylenol as directed and as discussed. 2. Follow-up with a primary care provider as discussed. Return to the ED as needed and as discussed. Sepsis Event Note (ED) - Evaluation Sepsis Screening Result: No Definite Risk - My Orders Last 24 Hours: My Active Orders 04/23/21 19:47 Blood Culture x2 Reflex Set [OM.PC] Stat 04/23/21 19:55 CULTURE BLOOD [BC] Stat - Assessment/Plan Last 24 Hours: My Active Orders 04/23/21 19:47 Blood Culture x2 Reflex Set [OM.PC] Stat 04/23/21 19:55 CULTURE BLOOD [BC] Stat
--- NOTE | 2021-04-23 21:30 | PCM.SN.2 ---
- Free Text/Narrative Note: Called by ER to evaluate 56 female with a headache s/p lumbar puncture 2 days ago Pt was discharged yesterday with a dx of probable viral meningitis after a several day inpatient coarse. At time of discharge she was 80% better Pt lives at home alone and spent most of the day in bed with a headache- bifrontal in nature with radiation to neck, exactly the same as her headache prior to her lumbar puncture. There is no difference in the character of her headache today other than it is worse compared to yesterday. She arrived to ER with a 8/10 YOU but since the liter bolus of LR and Toradol 30mg iv, her pain level is 2/10 supine and sitting up. She has no n/v/visual changes, changes in gait, or mentation Pt is alert, orieted, VSS Do not feel this is a spinal headache at this time PLAN Pt will stay with her daughter, hydrate, rest, and take tylenol for YOU and return for any new changes. Plan discussed with ER Dr and agrees
== END 2021-04-23 21:37 | disposition home or self-care (01) ==
LOC: MW.ED 18:14
DX: A87.9 Viral meningitis, unspecified (principal); Z88.2 Allergy status to sulfonamides
CPT/HCPCS: 36415; 80053; 85025; 87040; 96374; 99284; J1885; J7030; 99283